=== PATIENT | female | born 1930 | race Caucasian/White ===

== ENCOUNTER 2016-10-11 18:22 | Inpatient (IN) | payer OTHER ==
[~2016-10-11] VITALS: Ht 165.1 cm; Wt 61.7 kg
--- NOTE | 2016-10-11 18:25 | NUR ---
AAOX3, BBPA FROM [facility]: MEDICAL CLEARANCE FOR GPS PLACEMENT. SI. ON 5150 DTS. PLAN IS TO SHOOT HERSELF WITH A GUN. SKIN IS WARM AND DRY. PATIENT WAS COOPERATIVE AND CALM. SUICIDAL PRECAUTION IS IN PLACED. RESP IS EVEN AND UNLABORED WITH NAD NOTED. AWAITING MD FOR EVAL.
[2016-10-11 18:45] LABS: BASOPHILS # (AUTO) 0.2 /CMM (0.0-0.2); BASOPHILS % (AUTO) 2.4 % (0.0-2.0); EOSINOPHILS # (AUTO) 0.2 /CMM (0.0-0.7); EOSINOPHILS % (AUTO) 2.3 % (0.0-6.0); HEMATOCRIT 46 % (33-45); HEMOGLOBIN 15.1 g/dL (11.5-14.8); LYMPHOCYTES # (AUTO) 2.1 /CMM (0.8-4.8); LYMPHOCYTES % (AUTO) 30.3 % (20.0-44.0); MEAN CORPUSCULAR HEMOGLOBIN 31 PG (26.0-33.0); MEAN CORPUSCULAR HGB CONC 33 g/dl (31.0-36.0); MEAN CORPUSCULAR VOLUME 94 fL (82-100); MONOCYTES # (AUTO) 0.7 /CMM (0.1-1.30); MONOCYTES % (AUTO) 10.2 % (2.0-12.0); NEUTROPHILS # (AUTO) 3.7 /CMM (1.8-8.9); NEUTROPHILS % (AUTO) 54.8 % (43.0-81.0); PLATELET COUNT (AUTO) 231 /CMM (150-450); RDW COEFFICIENT OF VARIATION 12.4 (11.5-15.0); RED BLOOD CELL COUNT(AUTO) 4.93 MIL/uL (4.0-5.2); WHITE BLOOD COUNT (AUTO) 6.9 K/uL (4.3-11.0)
[2016-10-11 18:54] LABS: CALCIUM, SERUM 9.9 mg/dL (8.5-10.1); CARBON DIOXIDE 32 mmol/L (21-32); CHLORIDE 103 mmol/L (98-107); CREATININE 1.2 mg/dL (0.6-1.3); GLUCOSE 116 mg/dL (74-106); SODIUM SERUM 141 mmol/L (136-145); UREA NITROGEN, BLOOD 22 mg/dL (7-18)
[2016-10-11 19:00] LABS: ALANINE AMINOTRANSFERASE 63 U/L (12-78); ALCOHOL, BLOOD < 3 mg/dL (0-0); ALKALINE PHOSPHATASE 138 U/L (46-116); ASPARTATE AMINOTRANSFERASE 46 U/L (15-37); BILIRUBIN,DIRECT 0.1 mg/dL (0.0-0.2); BILIRUBIN,TOTAL 0.3 mg/dL (0.2-1.0)
--- NOTE | 2016-10-11 19:00 | NUR ---
REPORT GIVEN TO ZOILA PARK FOR MELVIN.
--- NOTE | 2016-10-11 19:02 | NUR ---
REPORT RECEIVED REPORT FROM ZOILA JUAN. PT AOX4. APPEARS COMFORTABLE. NAD NOTED. CONNECTED TO MONITOR.
[2016-10-11 19:03] LABS: SALICYLATE 1.6 mg/dL (2.8-20.0)
[2016-10-11 19:27] LABS: ACETAMINOPHEN 0 ug/ml (10-30)
[2016-10-11 19:28] LABS: APPEARANCE,URINE Clear (CLEAR); BILIRUBIN,URINE Negative (NEGATIVE); BLOOD, URINE Negative Ery/uL (NEGATIVE); COLOR,URINE Yellow (YELLOW); KETONES,URINE Negative (NEGATIVE); LEUKOCYTE ESTERASE ,URINE Negative (NEGATIVE); NITRITE, URINE Negative (NEGATIVE); PH,URINE 7.5 (5.0-8.0); PROTEIN,URINE Negative (NEGATIVE); UGLUCOSE Negative (NEGATIVE); UROBILINOGEN,URINE 0.2 EU/dL (0.2)
--- NOTE | 2016-10-11 19:46 | NUR ---
CALLED [facility] FOR PSYCH EVAL OF PT. ETA 1 HOUR.
--- NOTE | 2016-10-11 20:45 | NUR ---
[facility] AT BEDSIDE FOR PSYCH EVAL
--- NOTE | 2016-10-11 20:50 | NUR ---
PT ON 5150 HOLD PER REGAN.
--- NOTE | 2016-10-11 21:30 | NUR ---
GAVE REPORT TO ZOILA MCKEON FOR BED 218
--- NOTE | 2016-10-11 21:37 | NUR ---
PT TRANSFERRED TO [facility] IN WHEELCHAIR.
[2016-10-11] MEDS ORDERED: LORAZEPAM 0.5 MG TABLET PO PRN (22:00)
[2016-10-11] MEDS ORDERED: MAGNESIUM HYDROXIDE 30 ML UDC PO PRN (22:00)
[2016-10-11] MEDS ORDERED: CLONIDINE HCL 0.1 MG TABLET PO PRN (22:00)
[2016-10-11] MEDS ORDERED: MAG HYDROX/AL HYDROX/SIMETH 30 ML UDC PO PRN (22:00)
[2016-10-11] MEDS ORDERED: VALS320T2 PO (22:30)
[2016-10-11] MEDS ORDERED: ACET1TAB12 PO (22:30)
[2016-10-11] MEDS ORDERED: METO50TA3 PO (22:30)
[2016-10-11] MEDS ORDERED: ASPI-605 PO (22:30)
[2016-10-11] MEDS ORDERED: VERA240T35 PO (22:30)
[2016-10-11] MEDS ORDERED: GABA-534 PO (22:30)
[2016-10-11 22:33] VITALS: BP 159/77
[2016-10-11] MEDS ORDERED: TEMAZEPAM 7.5 MG CAPSULE ONE (22:54)
[2016-10-11] MEDS: TEMAZEPAM 7.5 MG CAPSULE PO PRN (23:06)
[2016-10-11] MEDS ORDERED: ACETAMINOPHEN 325 MG TABLET ONE (23:09)
--- NOTE | 2016-10-11 23:39 | NUR ---
GPS RN ADMITTED NOTES ADMITTED THIS 86Y/O FEMALE FROM [facility] ,PT INITIALLY CAME FROM [facility] , PT. CAME TO THE UNIT VIA WHEEL CHAIR ACCOMPANIED EMT STAFF PT. IS ON 5150 HOLD DANGER TO HERSELF , PER HOLD PT. FEELING DEPRESSIVE SI WITH PLAN TO SHOOT HER SELF WITH A GUN ,UPON FACE TO FACE ASSESSMENT PT. A/O X3 ,DENIIES SI AT THIS TIME , AMBULATORY COOPERTIVE FLAT AFFECT , MENTAL HX OF DEPRESSION ANXIETY MEDICAL HX HTN BREAST CA SKIN ASSESMENT DONE SKIN INTACT , NO ACUTE DISTRESS NOTED , DENIES ANY PAIN DISCOMFORT AT THIS TIME , MRSA SCREENING DONE ,BOTH MD AWARE OF NEW ADMISSION NEW ORDERS RECEIVED AND CARRIED OUT, REORIENT TO UNIT POLICES AND CONTRABAND CHECKS ,REORIENT TO UNIT POLICES ,ENCOURAGED PT TO VERBALIZE FEELING AND CONCERN TO STAFF , WILL CONTINUE TO MONITOR FOR SAFETY AND BEHAVIOR .
[2016-10-11 23:54] VITALS: BP 135/77
[2016-10-12] MEDS: ACETAMINOPHEN 325 MG TABLET PO PRN ×2 (00:19→08:50)
--- NOTE | 2016-10-12 03:01 | NUR ---
RN GPS NOTES NOTIFIED DR. SORENSEN FOR NEW ADMISSION RECONCILE THE MEDICATION , PER DR. MONAHAN I WILL DO IT IN THE MORNING ,
--- NOTE | 2016-10-12 06:29 | NUR ---
RN GPS NOTES PATIENT RESTING HER BED, NO ACUTE DISTRESS NOTED ,NO CHANGES IN STATUS. ALL NEEDS ATTENDED ANTICIPATED . DENIES SI AT THIS TIME, WILL ENDORSE TO NEXT SHIFT FOR CONTINUITY CARE
[2016-10-12 06:46] LABS: ALANINE AMINOTRANSFERASE 63 U/L (12-78); ALBUMIN 3.8 g/dL (3.4-5.0); ALKALINE PHOSPHATASE 127 U/L (46-116); ASPARTATE AMINOTRANSFERASE 40 U/L (15-37); BILIRUBIN,TOTAL 0.4 mg/dL (0.2-1.0); CALCIUM, SERUM 9.6 mg/dL (8.5-10.1); CARBON DIOXIDE 28 mmol/L (21-32); CHLORIDE 104 mmol/L (98-107); CREATININE 1.2 mg/dL (0.6-1.3); GLUCOSE 117 mg/dL (74-106); POTASSIUM 4.2 mmol/L (3.5-5.1); SODIUM SERUM 144 mmol/L (136-145); THYROID STIMULATING HORMONE 1.971 uIU/mL (0.358-3.74); TOTAL PROTEIN, SERUM 7.5 g/dL (6.4-8.2); UREA NITROGEN, BLOOD 22 mg/dL (7-18)
[2016-10-12 06:47] LABS: MAGNESIUM 2.1 mg/dL (1.8-2.4)
--- NOTE | 2016-10-12 07:32 | NUR ---
RN GPS NOTES AT 20:33 TEAZEPAM 7.5 MG INITIALLY COUNT 17 BY MISTAKE , BUT ACTUAL QTY WAS FOUND 18, CYCLE COUNT DONE WITH CHARGE DAE / DIYA RECOUNT WITH CHARGE RESOLVED DISCARPANCEY
[2016-10-12] MEDS ORDERED: ASPI-991 PO (07:57)
[2016-10-12] MEDS ORDERED: ATOR10TA PO (07:57)
[2016-10-12] MEDS ORDERED: VALS1TAB52 PO (07:57)
[2016-10-12] MEDS ORDERED: DONE5TAB34 PO (07:57)
[2016-10-12] MEDS ORDERED: TEMA15CA PO (07:57)
[2016-10-12 08:00] VITALS: BP 139/65
--- NOTE | 2016-10-12 13:11 | NUR ---
UR update: ЕКАТЕРИНА left a voicemail with clinical information to [facility] caseworker Margarita [phone]. Will follow up re: authorization number. Addendum: 10/12/16 at 1317 by BARBY WILLAMS AUTHORIZATION#[id number]
[2016-10-12 15:44] VITALS: BP 121/62
[2016-10-12] MEDS: METOPROLOL TARTRATE 50 MG TABLET PO SCH (16:52)
[2016-10-12] MEDS: GABAPENTIN 300 MG CAPSULE PO SCH (16:52)
--- NOTE | 2016-10-12 17:29 | NUR ---
Initial discharge plan: Pt. resides with her daughter, [address] [address] and wants to return. Pt. may go live with another daughter upon discharge as the house she has been living at is undergoing construction. Pt. will follow up [facility] daughters, Faby Mya [phone], Margarita [phone] Yi Roque [phone] and will follow up with MD and will help arrange for a safe and proper discharge.
--- NOTE | 2016-10-12 17:30 | NUR ---
UR update: ЕКАТЕРИНА spoke with N case sealer Margarita [phone] and patient is authorized until 10/16/16 with a review due on Sunday. AUTHORIZATION#[id number]
[2016-10-12 20:00] VITALS: BP 148/77
[2016-10-12] MEDS: MIRTAZAPINE 15 MG TABLET PO SCH (21:23)
[2016-10-12] MEDS: TEMAZEPAM 7.5 MG CAPSULE PO PRN (22:03)
--- NOTE | 2016-10-13 06:33 | NUR ---
RN GPS NOTES PATIENT RESTING HER BED, NO ACUTE DISTRESS NOTED ,NO CHANGES IN STATUS. ALL NEEDS ATTENDED ANTICIPATED . DENIES SI/HI AT THIS TIME, WILL ENDORSE TO NEXT SHIFT FOR CONTINUITY CARE
[2016-10-13 07:37] LABS: CHOLESTEROL 180 mg/dL (<200); HDL CHOLESTEROL 74 mg/dL (40-60); LDL 87 mg/dL (0-99); TRIGLYCERIDES 89 mg/dL (30-150)
[2016-10-13 08:00] VITALS: BP 161/74
[2016-10-13] MEDS: ATORVASTATIN 10 MG TABLET PO SCH (08:21)
[2016-10-13] MEDS: ASPIRIN EC 81 MG TABLET.DR PO SCH (08:21)
[2016-10-13] MEDS: DONEPEZIL 5 MG TABLET PO SCH (08:21)
[2016-10-13] MEDS: HYDROCHLOROTHIAZIDE 25 MG TABLET PO SCH (08:22)
[2016-10-13] MEDS: VALSARTAN 80 MG TABLET PO SCH (08:22)
[2016-10-13] MEDS: GABAPENTIN 300 MG CAPSULE PO SCH ×3 (08:22→16:12)
[2016-10-13] MEDS: METOPROLOL TARTRATE 50 MG TABLET PO SCH ×2 (08:22→16:12)
[2016-10-13] MEDS: VERAPAMIL SR 120 MG TABLET.SA PO SCH (08:49)
[2016-10-13] MEDS ORDERED: Medication Not On Formulary EA (Valsartan/Hydrochlorothiazide (Diovan Hct 320-12.5 Mg Ta PO SCH (09:00)
[2016-10-13] MEDS: BOOST PLUS FOOD-VANILLA 237 ML BOX PO SCH ×2 (10:37→17:27)
[2016-10-13] MEDS ORDERED: LORAZEPAM 0.5 MG TABLET PO PRN (12:30)
--- NOTE | 2016-10-13 12:56 | NUR ---
GPS RN: ADMINISTERED ATIVAN 0.5MG PO ORDERED FOR ANXIETY. PATIENT INSTRUCTED ON RELAXATION TECHNIQUE, PROVIDED WITH CALM AND SAFE ENVIRONMENT, VS STABLE, CONTINUE TO MONITOR.
--- NOTE | 2016-10-13 14:07 | NUR ---
GPS RN: PT STATE FEELING LESS ANXIOUS AFTER TAKING ATIVAN. CONTINUE TO PROVIDE A SAFE AND CALM ENVIRONMENT AND MONITOR THE PATIENT.
[2016-10-13 16:00] VITALS: BP 116/64
--- NOTE | 2016-10-13 19:30 | NUR ---
GPS RN NOTE, RECEIVED PATIENT AWAKE AND IN BED, PATIENT HAS A COMPLAINT OF CHRONIC BACK PAIN AT 2 OUT 10 ON THE PAIN SCALE. PATIENT IS TAKING ORAL PAIN MEDICATION FOR THIS PAIN. PATIENT IS DISPLAYING NO S/S OF APPARENT DISTRESS AT THIS TIME. PATIENT BREATHING IS UNLABORED WITH EQUAL RISE AND FALL OF THE CHEST. PATIENT IS ALERT AND ORIENTED X 3 ON ROOM AIR WITH A SPO2 97%. PATIENT COMPLAINT WITH MEDICATION, ANXIOUS, COOPERATIVE, GUARDED, SUSPICIOUS, AND NEEDS REORIENTATION. PATIENT DENIES SUICIDE AND HOMICIDAL IDEATIONS AT THIS TIME. PATIENT ASSISTED WITH TURNING AND REPOSITIONING Q2HR AND PRN FOR COMFORT AND CIRCULATION. PATIENT HAS NO NEEDS AT THIS TIME. PATIENT EDUCATED ON THE USE OF THE CALL RUIZ. PATIENT BED SIDE RAILS UP X2 FOR SAFETY, BED IS LOCKED AND LOW WILL CONTINUE TO MONITOR AND MAINTAIN SAFETY.
[2016-10-13] MEDS: ACETAMINOPHEN 325 MG TABLET PO PRN (19:58)
--- NOTE | 2016-10-13 19:58 | NUR ---
GPS RN NOTE, PATIENT HAS A COMPLAINT OF LOWER BACK PAIN AT 3 OUT 10 ON THE PAIN SCALE AND WOULD LIKE MEDICATION AT THIS TIME. PATIENT VITAL SIGNS ARE STABLE. GAVE TYLENOL 650MG PO Q6HR PRN ORDERED. WILL REASSESS PAIN AND I WILL CONTINUE TO MONITOR THIS PATIENT.
[2016-10-13 20:00] VITALS: BP 115/59
[2016-10-13] MEDS: TEMAZEPAM 7.5 MG CAPSULE PO PRN (22:08)
[2016-10-13] MEDS: MIRTAZAPINE 15 MG TABLET PO SCH (22:08)
--- NOTE | 2016-10-13 22:08 | NUR ---
GPS RN NOTE, PATIENT HAS A COMPLAINT OF NOT BEING ABLE TO SLEEP AND WOULD LIKE A SLEEPING AID AT THIS TIME. PATIENT VITAL SIGNS ARE STABLE. GAVE RESTORIL 7.5MG PO HS ORDERED. WILL REASSESS FOR INSOMNIA AND I WILL CONTINUE TO MONITOR THIS PATIENT.
[2016-10-14 08:00] VITALS: BP 119/75
[2016-10-14] MEDS: DONEPEZIL 5 MG TABLET PO SCH (09:59)
[2016-10-14] MEDS: GABAPENTIN 300 MG CAPSULE PO SCH ×3 (09:59→16:17)
[2016-10-14] MEDS: ATORVASTATIN 10 MG TABLET PO SCH (10:00)
[2016-10-14] MEDS: ASPIRIN EC 81 MG TABLET.DR PO SCH (10:00)
[2016-10-14] MEDS: HYDROCHLOROTHIAZIDE 25 MG TABLET PO SCH (10:01)
[2016-10-14] MEDS: METOPROLOL TARTRATE 50 MG TABLET PO SCH ×2 (10:01→16:17)
[2016-10-14] MEDS: VALSARTAN 80 MG TABLET PO SCH (10:02)
[2016-10-14] MEDS: VERAPAMIL SR 120 MG TABLET.SA PO SCH (10:02)
[2016-10-14] MEDS: BOOST PLUS FOOD-VANILLA 237 ML BOX PO SCH ×2 (10:14→16:57)
[2016-10-14 16:00] VITALS: BP 136/67
[2016-10-14] MEDS: ACETAMINOPHEN 325 MG TABLET PO PRN (16:10)
--- NOTE | 2016-10-14 16:11 | NUR ---
GPS/RN TYLENOL 650 MG PO GIVEN FOR HEADACHE REQUESTED.
[2016-10-14 20:00] VITALS: BP 131/61
[2016-10-14] MEDS: MIRTAZAPINE 15 MG TABLET PO SCH (21:35)
[2016-10-14] MEDS: TEMAZEPAM 7.5 MG CAPSULE PO PRN (22:27)
--- NOTE | 2016-10-15 06:50 | NUR ---
RN GPS NOTES PATIENT RESTING HER BED, NO ACUTE DISTRESS NOTED ,NO CHANGES IN STATUS. ALL NEEDS ATTENDED ANTICIPATED . DENIES SI/HI AT THIS TIME, PT. COMPLY WITH DUE MEDS ,WILL ENDORSE TO NEXT SHIFT FOR CONTINUITY CARE
[2016-10-15 07:54] VITALS: BP 153/72
[2016-10-15] MEDS: ATORVASTATIN 10 MG TABLET PO SCH (08:31)
[2016-10-15] MEDS: VALSARTAN 80 MG TABLET PO SCH (08:31)
[2016-10-15] MEDS: ASPIRIN EC 81 MG TABLET.DR PO SCH (08:32)
[2016-10-15] MEDS: DONEPEZIL 5 MG TABLET PO SCH (08:32)
[2016-10-15] MEDS: GABAPENTIN 300 MG CAPSULE PO SCH ×3 (08:32→16:27)
[2016-10-15] MEDS: METOPROLOL TARTRATE 50 MG TABLET PO SCH ×2 (08:33→16:27)
[2016-10-15] MEDS: BOOST PLUS FOOD-VANILLA 237 ML BOX PO SCH ×2 (08:34→16:33)
[2016-10-15] MEDS: HYDROCHLOROTHIAZIDE 25 MG TABLET PO SCH (08:41)
[2016-10-15] MEDS: VERAPAMIL SR 120 MG TABLET.SA PO SCH (10:00)
[2016-10-15] MEDS: SERTRALINE HCL 25 MG TABLET PO SCH (14:01)
[2016-10-15 15:49] VITALS: BP 109/52
[2016-10-15] MEDS: ACETAMINOPHEN 325 MG TABLET PO PRN (18:51)
--- NOTE | 2016-10-15 20:10 | NUR ---
GPS RN NOTE: PATIENT AWAKE AND RESTING BED, NO ACUTE DISTRESS NOTED. BREATHING EVEN AND UNLABORED, NO SOB NOTED. PATIENT IS ALERT AND ORIENTED X 3, COMPLAINT WITH MEDICATION, COOPERATIVE, GUARDED, SUSPICIOUS. PATIENT DENIES SUICIDE AND HOMICIDAL IDEATIONS AT THIS TIME. REORIENTED PATIENT NEEDED. BED LOCKED AND IN LOWEST POSITION, WILL CONTINUE TO MONITOR.
[2016-10-15 20:13] VITALS: BP 146/65
[2016-10-15] MEDS: MIRTAZAPINE 15 MG TABLET PO SCH (21:16)
[2016-10-15] MEDS: TEMAZEPAM 7.5 MG CAPSULE PO PRN (21:59)
--- NOTE | 2016-10-15 22:00 | NUR ---
GPS RN NOTE: PATIENT REQUEST FOR MEDICATIONS FOR SLEEP. RESTORIL 7.5MG ORAL GIVEN PER MD ORDER. WILL CONTINUE TO MONITOR.
[2016-10-16 08:00] VITALS: BP 152/76
[2016-10-16] MEDS: SERTRALINE HCL 25 MG TABLET PO SCH (08:35)
[2016-10-16] MEDS: GABAPENTIN 300 MG CAPSULE PO SCH ×2 (08:35→13:00)
[2016-10-16] MEDS: ASPIRIN EC 81 MG TABLET.DR PO SCH (08:35)
[2016-10-16] MEDS: ATORVASTATIN 10 MG TABLET PO SCH (08:35)
[2016-10-16] MEDS: METOPROLOL TARTRATE 50 MG TABLET PO SCH (08:36)
[2016-10-16] MEDS: HYDROCHLOROTHIAZIDE 25 MG TABLET PO SCH (08:36)
[2016-10-16] MEDS: VALSARTAN 80 MG TABLET PO SCH (08:37)
[2016-10-16 08:38] VITALS: BP 152/76
[2016-10-16] MEDS: VERAPAMIL SR 120 MG TABLET.SA PO SCH (08:38)
[2016-10-16] MEDS: DONEPEZIL 5 MG TABLET PO SCH (09:09)
[2016-10-16] MEDS: BOOST PLUS FOOD-VANILLA 237 ML BOX PO SCH (09:30)
--- NOTE | 2016-10-16 12:20 | NUR ---
GPS/RN PATIENT CLEARED FOR DISCHARGE HOME BY DR CHIANG AND JACKELYN ELIAS. ALL D/C PAPER WORK COMPLETED AND SIGNED BY PATIENT. PRESCRIPTIONS AND PACKET EXPLAINED TO PATIENT, VERBALIZED UNDERSTANDING,BELONGINGS RETURNED AND SIGNED FOR BY PATIENT. PSYCHIATRIC PRESCRIPTIONS CALLED INTO [facility], [facility] ([phone]) PATIENT'S DAUGHTER STATED THAT SHE HAS REFILLS OF MEDICAL MEDICATION AT HOME AND DOES NOT REQUIRE PRESCRIPTIONS. PATIENT DENIES SI/HI/AH UPON DISCHARGE, PSYCHIATRIC TREATMENT PLANS MET, LEFT UNIT CALM, COOPERATIVE, WITH DAUGHTER AND EVENING ANCHOR AT SIDE.
--- NOTE | 2016-10-16 13:05 | NUR ---
GPS/RN PATIENT D/C HOME, UNABLE TO ADMINISTER GABAPENTIN PO.
--- NOTE | 2016-10-17 09:16 | NUR ---
Discharge note: discharged home with her daughter, Yi [phone] home [phone] at [address] [facility] [address]. Daughter picked up the patient. Pt. was calm and cooperative, denied suicidal/homicidal ideations, no more anxiety noted, pt. agreed with the discharge plan. ЕКАТЕРИНА provided the family with a list of insurance contracted psychiatrists and psychologists/therapists for family to make an appointment with . ЕКАТЕРИНА called several on the list, but none were able to provide a definite answer whether patient can follow up with them, and daughter agreed to do the rest of the calls. ЕКАТЕРИНА provided a resource to [facility] [address] [place] [address] where she has a screening appointment on 10/17/16 at 9:00AM to discuss overuse of medications. Discharge paperwork has been signed, discharge instructions were provided to the daughter picking her up.
== END 2016-10-16 12:20 | disposition home or self-care (01) | DRG 885 ==
LOC: ER 18:23 → GPS 21:25
PROVIDERS: ADMIT Psychiatry & Neurology Psychosomatic Medicine; ATTEND Internal Medicine
DX: F33.2 Major depressive disorder, recurrent severe without psychotic features (principal); F02.80 Dementia in other diseases classified elsewhere, unspecified severity, without behavioral disturbance, psychotic disturbance, mood disturbance, and anxiety; Z95.1 Presence of aortocoronary bypass graft; G30.9 Alzheimer's disease, unspecified; E78.5 Hyperlipidemia, unspecified; F41.9 Anxiety disorder, unspecified; G89.29 Other chronic pain; I10 Essential (primary) hypertension; I25.10 Atherosclerotic heart disease of native coronary artery without angina pectoris; K21.9 Gastro-esophageal reflux disease without esophagitis; Z85.3 Personal history of malignant neoplasm of breast; Z86.73 Personal history of transient ischemic attack (TIA), and cerebral infarction without residual deficits; F01.50 Vascular dementia, unspecified severity, without behavioral disturbance, psychotic disturbance, mood disturbance, and anxiety
CPT/HCPCS: 36415; 80048-TC; 80053-TC; 80061-TC; 80076-TC; 80305; 81000-TC; 82746; 83735-TC; 84443-TC; 85025-TC; 87081-TC; A4606; G0480; Z7610